=== PATIENT | male | born 1965 | race Caucasian/White ===

== ENCOUNTER 2021-07-09 14:05 | Inpatient (IN) | payer SELFPAY ==
[2021-07-09 15:00] LABS: ANION GAP 16.4 mEq/L (7-13); CHLORIDE,CL 92 mmol/L (98-107); SODIUM,NA 132 mmol/L (136-145)
[2021-07-09] MEDS ORDERED: Iopamidol 755 Mg/ML 100 ML Bottle IVPUSH ONE (15:15)
--- NOTE | 2021-07-09 15:25 | EDM.PDOC ---
ED HPI GENERAL MEDICAL PROBLEM - General Chief Complaint: Respiratory Problem Stated Complaint: BLOOD PRESSURE LOW Time Seen by Provider: 07/09/21 15:00 Source of Information: Reports: Patient, Provider History Limitations: Reports: No Limitations - History of Present Illness INITIAL COMMENTS - FREE TEXT/NARRATIVE: This 56 yo male patient was sent to the ED by a provider at the [facility] due to a positive COVID test last week (home test on 07/01/21), a blood pressure of 68/34 and an oxygen saturation of 78% on room air. The patient was brought to the ED from the clinic in a wheel chair, without oxygen, but the patient did have a surgical mask in place. Unfortunately, when he arrived in the ED there were no beds available so the patient was held in the [place]ivar until a room could be cleaned for him. Oxygen therapy was initiated by RT prior to being placed in a ED bed. Onset: Gradual Duration: Constant, Getting Worse Location: Reports: Chest, Generalized Quality: Reports: Other Severity: Severe Improves with: Reports: Rest Worsens with: Reports: Movement Associated Symptoms: Reports: Cough, Fever/Chills, Shortness of Breath, Weakness, Other (lower extremity edema) - Related Data Allergies Allergy/AdvReac Type Severity Reaction Status Date / Time No Known Allergies Allergy Verified 07/09/21 16:03 ED ROS GENERAL - Review of Systems Review Of Systems: Comprehensive ROS is negative, except as noted in HPI. ED EXAM, GENERAL - Physical Exam Exam: See Below Exam Limited By: No Limitations General Appearance: Alert, WD/WN Eye Exam: Bilateral Eye: EOMI, Normal Inspection, PERRL Ears: Normal External Exam, Normal Canal, Hearing Grossly Normal, Normal TMs Nose: Normal Inspection, Normal Mucosa, No Blood Throat/Mouth: Normal Inspection, Normal Lips, Normal Teeth, Normal Gums, Normal Oropharynx, Normal Voice, No Airway Compromise Head: Atraumatic, Normocephalic Neck: Normal Inspection, Supple, Non-Tender, Full Range of Motion Respiratory/Chest: Decreased Breath Sounds, Rhonchi Cardiovascular: Normal Peripheral Pulses, Regular Rate, Rhythm, No Edema, No Gallop, No JVD, No Murmur, No Rub GI/Abdominal: Normal Bowel Sounds, Soft, Non-Tender, No Organomegaly, No Distention, No Abnormal Bruit, No Mass (Male) Exam: Deferred Rectal (Males) Exam: Deferred Back Exam: Normal Inspection, Full Range of Motion, NT Extremities: Normal Inspection, Normal Range of Motion, Non-Tender, Normal Capillary Refill, No Pedal Edema Neurological: Alert, Oriented, CN II-XII Intact, Normal Cognition, Normal Gait, Normal Reflexes, No Motor/Sensory Deficits Psychiatric: Normal Affect, Normal Mood Skin Exam: Warm, Dry, Intact, Normal Color, No Rash Lymphatic: No Adenopathy Course - Vital Signs Last Recorded V/S: Last Vital Signs Temp 99.0 F 07/09/21 15:37 Pulse 108 H 07/09/21 15:37 Resp 24 H 07/09/21 15:37 BP Pulse Ox 82 L 07/09/21 15:37 - Orders/Labs/Meds Orders: Active Orders 24 hr Category Date Time Status Admission Diagnosis [ADT] Urgent ADT 07/09/21 16:15 Ordered Admission Status [Patient Status] [ADT] Routine ADT 07/09/21 16:15 Ordered EKG Documentation Completion [RC] STAT Care 07/09/21 14:11 Active Chest w Cont [CT] Urgent Exams 07/09/21 15:15 Ordered REFLEX LACTIC ACID YES OR NO [CHEM] Routine Lab 07/09/21 15:04 Received Labs: Laboratory Tests 07/09/21 07/09/21 07/09/21 Range/Units 14:30 14:30 14:30 WBC 16.4 H (5.0-10.0) 10^3/uL RBC 6.08 (4.6-6.2) 10^6/uL Hgb 15.7 (14.0-18.0) g/dL Hct 46.9 (40.0-54.0) % MCV 77.1 L (80-100) fL MCH 25.8 L (27.0-34.0) pg MCHC 33.5 (33.0-35.0) g/dL Plt Count 244 (150-450) 10^3/uL Neut % (Auto) 91.6 H (42.2-75.2) % Lymph % (Auto) 5.6 L (20.5-50.1) % [place] % (Auto) 2.6 (2-8) % Eos % (Auto) 0.1 L (1.0-3.0) % Baso % (Auto) 0.1 (0.0-1.0) % Add Manual Diff Yes Neutrophils % (Manual) 95 H (42-75) % Lymphocytes % (Manual) 3 L (20-50) % Monocytes % (Manual) 2 (2-8) % D-Dimer, Quantitative 3060 H (0-400) ng/mL Sodium 132 L (136-145) mmol/L Potassium 3.4 L (3.5-5.1) mmol/L Chloride 92 L (98-107) mmol/L Carbon Dioxide 27 (21-32) mmol/L Anion Gap 16.4 H (7-13) mEq/L BUN 24 H (7-18) mg/dL Creatinine 1.07 (0.70-1.30) mg/dL Est Cr Clr Drug Dosing TNP Estimated GFR (MDRD) > 60 BUN/Creatinine Ratio 22.4 (No establ ref range) Glucose 87 (70-99) mg/dL Lactic Acid (0.4-2.0) mmol/L Calcium 8.4 L (8.5-10.1) mg/dL Total Bilirubin 3.1 H (0.2-1.0) mg/dL AST 153 H (15-37) U/L ALT 87 H (16-63) U/L Alkaline Phosphatase 114 (46-116) U/L Troponin I High Sens 58 (<=76) pg/mL B-Natriuretic Peptide (0-100) pg/ml Total Protein 6.5 (6.4-8.2) g/dL Albumin 2.8 L (3.4-5.0) g/dL Globulin 3.7 Albumin/Globulin Ratio 0.76 Influenza Type A RNA (NEGATIVE) Influenza Type B RNA (NEGATIVE) SARS-CoV-2 RNA (HOMERO) (NEGATIVE) 07/09/21 07/09/21 07/09/21 Range/Units 14:30 14:30 15:00 WBC (5.0-10.0) 10^3/uL RBC (4.6-6.2) 10^6/uL Hgb (14.0-18.0) g/dL Hct (40.0-54.0) % MCV (80-100) fL MCH (27.0-34.0) pg MCHC (33.0-35.0) g/dL Plt Count (150-450) 10^3/uL Neut % (Auto) (42.2-75.2) % Lymph % (Auto) (20.5-50.1) % [place] % (Auto) (2-8) % Eos % (Auto) (1.0-3.0) % Baso % (Auto) (0.0-1.0) % Add Manual Diff Neutrophils % (Manual) (42-75) % Lymphocytes % (Manual) (20-50) % Monocytes % (Manual) (2-8) % D-Dimer, Quantitative (0-400) ng/mL Sodium (136-145) mmol/L Potassium (3.5-5.1) mmol/L Chloride (98-107) mmol/L Carbon Dioxide (21-32) mmol/L Anion Gap (7-13) mEq/L BUN (7-18) mg/dL Creatinine (0.70-1.30) mg/dL Est Cr Clr Drug Dosing Estimated GFR (MDRD) BUN/Creatinine Ratio (No establ ref range) Glucose (70-99) mg/dL Lactic Acid 3.0 H* (0.4-2.0) mmol/L Calcium (8.5-10.1) mg/dL Total Bilirubin (0.2-1.0) mg/dL AST (15-37) U/L ALT (16-63) U/L Alkaline Phosphatase (46-116) U/L Troponin I High Sens (<=76) pg/mL B-Natriuretic Peptide 446 H (0-100) pg/ml Total Protein (6.4-8.2) g/dL Albumin (3.4-5.0) g/dL Globulin Albumin/Globulin Ratio Influenza Type A RNA Negative (NEGATIVE) Influenza Type B RNA Negative (NEGATIVE) SARS-CoV-2 RNA (HOMERO) Positive H (NEGATIVE) Meds: Medications Discontinued Medications Generic Name Dose Route Start Last Admin Trade Name Freq PRN Reason Stop Dose Admin Iopamidol 100 ml 07/09/21 15:15 Iopamidol 755 Mg/Ml 100 Ml Bottle IVPUSH 07/09/21 15:16 ONETIME ONE Departure - Departure Time of Disposition: 16:17 Disposition: Admitted As Inpatient 66 Condition: Serious Clinical Impression: COVID, Hypoxemia - Discharge Information *PRESCRIPTION DRUG MONITORING PROGRAM REVIEWED*: Not Applicable *COPY OF PRESCRIPTION DRUG MONITORING REPORT IN PATIENT ESDRAS: Not Applicable Forms: ED Department Discharge Care Plan Goals: Discussed the patient's history, examination and lab results with Dr. Li. Dr. Li accepted the patient for continued evaluation and management as an inpatient in [facility]. Sepsis Event Note (ED) - Focused Exam Vital Signs: Vital Signs Temp Pulse Resp Pulse Ox 07/09/21 15:37 99.0 F 108 H 24 H 82 L - My Orders Last 24 Hours: My Active Orders 07/09/21 14:11 EKG Documentation Completion [RC] STAT 07/09/21 15:04 REFLEX LACTIC ACID YES OR NO [CHEM] Routine 07/09/21 15:15 Chest w Cont [CT] Urgent 07/09/21 16:15 Admission Diagnosis [ADT] Urgent Admission Status [Patient Status] [ADT] Routine - Assessment/Plan Last 24 Hours: My Active Orders 07/09/21 14:11 EKG Documentation Completion [RC] STAT 07/09/21 15:04 REFLEX LACTIC ACID YES OR NO [CHEM] Routine 07/09/21 15:15 Chest w Cont [CT] Urgent 07/09/21 16:15 Admission Diagnosis [ADT] Urgent Admission Status [Patient Status] [ADT] Routine
[2021-07-09 15:57] LABS: CORONAVIRUS COVID-19 NAA POSITIVE (NEGATIVE)
--- NOTE | 2021-07-09 17:10 | PCM.HP ---
H&P History of Present Illness - General Date of Service: 07/09/21 Admit Problem/Dx: Admission Diagnosis/Problem Admission Diagnosis/Problem Hypoxemia Source of Information: Patient History Limitations: Reports: No Limitations - History of Present Illness Initial Comments - Free Text/Narative: Evan Romo a 56 y.o.male. Presented to the regular family practice clinic of [facility] at [place], Pt presented their for COVID-19 testing and examination, Patient tested positive for COVID-19 on by the home test kit and got retested today ( 07/09/21) and it is also positive for COVID-19. The patient is unvaccinated and he has not taken any treatment even after testing positive with his home testing kit, today ( 07/09) he presented to the family practice clinic because of symptoms of shortness of breath and bilateral lower extremity swelling and weakness. His blood pressure in the clinic was low ( 68/34) and oxygen saturation was 78% on room air and was sent to ER at [place] for further evaluation. The patient will be admitted for severe hypoxemia secondary to COVID-19 infection and secondary bacterial pneumonia. Laboratory examination showed D- dimer was at 3060 and lactic acid was at 3. CT chest with contrast was ordered but patient could not lay flat and because of the severe hypoxia the CT was not done. Onset of Symptoms: Reports: Gradual Duration of Symptoms: Reports: Getting Worse Associated Symptoms: Reports: cough w sputum - Related Data Allergies/Adverse Reactions: Allergies Allergy/AdvReac Type Severity Reaction Status Date / Time No Known Allergies Allergy Verified 07/09/21 16:03 Past Medical History - Past Health History Medical/Surgical History: Denies Medical/Surgical History - Infectious Disease History Infectious Disease History: Reports: Novel Coronavirus Social & Family History - Family History Family Medical History: Unobtainable - Tobacco Use Tobacco Use Status *Q: Former Tobacco User Used Tobacco, but Quit: Yes Month/Year Tobacco Last Used: 07/2005 - Caffeine Use Caffeine Use: Reports: None - Recreational Drug Use Recreational Drug Use: No H&P Review of Systems - Review of Systems: Review Of Systems: See Below General: Reports: Weakness. Denies: Fever, Chills HEENT: Denies: Dysphasia, Headaches, Hearing Changes, Sinus Congestion, Visual Changes Pulmonary: Reports: Shortness of Breath, Cough Cardiovascular: Reports: Dyspnea on Exertion. Denies: Chest Pain, Lightheadedness Gastrointestinal: Denies: Abdominal Pain, Diarrhea, Nausea, Vomiting Genitourinary: Denies: Dysuria, Frequency, Urgency, Flank Pain Musculoskeletal: Denies: Neck Pain, Shoulder Pain Skin: Denies: Cyanosis, Jaundice, Bruising, Pruritis, Rash Psychiatric: Denies: Confusion, Anxiety Neurological: Denies: Confusion, Numbness, Paresthesia Exam - Exam Exam: See Below - Vital Signs Vital Signs: Last Vital Signs Temp 37.2 C 07/09/21 15:37 Pulse 108 H 07/09/21 15:37 Resp 24 H 07/09/21 15:37 BP Pulse Ox 82 L 07/09/21 15:37 - Exam Quality Assessment: Supplemental Oxygen, DVT Prophylaxis. No: Urinary Catheter General: Alert, Oriented, Cooperative, Mild Distress HEENT: Conjunctiva Clear, Hearing Intact, Mucosa Moist & [place] Neck: Supple. No: JVD, Thyromegaly Lungs: Clear to Auscultation, Normal Respiratory Effort Cardiovascular: Regular Rate, Regular Rhythm GI/Abdominal Exam: Normal Bowel Sounds, Non-Tender, No Distention (Male) Exam: Deferred Rectal (Males) Exam: Deferred Back Exam: Normal Inspection Extremities: Normal Inspection, Pedal Edema (+2-3 pitting edema to B/L Lower Extremitu with skin break of Left LE) Skin: Warm, Dry, Intact Neurological: Cranial Nerves Intact, Reflexes Equal Bilateral Neuro Extensive - Mental Status: Alert, Oriented x3, Normal Mood/Affect, Normal Cognition Neuro Extensive - Motor, Sensory, Reflexes: CN II-XII Intact, Normal Gait, Normal Reflexes Psychiatric: Alert, Normal Affect, Normal Mood - Patient Data Lab Results Last 24 hrs: Laboratory Results - last 24 hr 07/09/21 07/09/21 07/09/21 Range/Units 14:30 14:30 14:30 WBC 16.4 H (5.0-10.0) 10^3/uL RBC 6.08 (4.6-6.2) 10^6/uL Hgb 15.7 (14.0-18.0) g/dL Hct 46.9 (40.0-54.0) % MCV 77.1 L (80-100) fL MCH 25.8 L (27.0-34.0) pg MCHC 33.5 (33.0-35.0) g/dL Plt Count 244 (150-450) 10^3/uL Neut % (Auto) 91.6 H (42.2-75.2) % Lymph % (Auto) 5.6 L (20.5-50.1) % [place] % (Auto) 2.6 (2-8) % Eos % (Auto) 0.1 L (1.0-3.0) % Baso % (Auto) 0.1 (0.0-1.0) % Add Manual Diff Yes Neutrophils % (Manual) 95 H (42-75) % Lymphocytes % (Manual) 3 L (20-50) % Monocytes % (Manual) 2 (2-8) % D-Dimer, Quantitative 3060 H (0-400) ng/mL Sodium 132 L (136-145) mmol/L Potassium 3.4 L (3.5-5.1) mmol/L Chloride 92 L (98-107) mmol/L Carbon Dioxide 27 (21-32) mmol/L Anion Gap 16.4 H (7-13) mEq/L BUN 24 H (7-18) mg/dL Creatinine 1.07 (0.70-1.30) mg/dL Est Cr Clr Drug Dosing TNP Estimated GFR (MDRD) > 60 BUN/Creatinine Ratio 22.4 (No establ ref range) Glucose 87 (70-99) mg/dL Lactic Acid (0.4-2.0) mmol/L Calcium 8.4 L (8.5-10.1) mg/dL Total Bilirubin 3.1 H (0.2-1.0) mg/dL AST 153 H (15-37) U/L ALT 87 H (16-63) U/L Alkaline Phosphatase 114 (46-116) U/L Troponin I High Sens 58 (<=76) pg/mL B-Natriuretic Peptide (0-100) pg/ml Total Protein 6.5 (6.4-8.2) g/dL Albumin 2.8 L (3.4-5.0) g/dL Globulin 3.7 Albumin/Globulin Ratio 0.76 Influenza Type A RNA (NEGATIVE) Influenza Type B RNA (NEGATIVE) SARS-CoV-2 RNA (HOMERO) (NEGATIVE) 07/09/21 07/09/21 07/09/21 Range/Units 14:30 14:30 15:00 WBC (5.0-10.0) 10^3/uL RBC (4.6-6.2) 10^6/uL Hgb (14.0-18.0) g/dL Hct (40.0-54.0) % MCV (80-100) fL MCH (27.0-34.0) pg MCHC (33.0-35.0) g/dL Plt Count (150-450) 10^3/uL Neut % (Auto) (42.2-75.2) % Lymph % (Auto) (20.5-50.1) % [place] % (Auto) (2-8) % Eos % (Auto) (1.0-3.0) % Baso % (Auto) (0.0-1.0) % Add Manual Diff Neutrophils % (Manual) (42-75) % Lymphocytes % (Manual) (20-50) % Monocytes % (Manual) (2-8) % D-Dimer, Quantitative (0-400) ng/mL Sodium (136-145) mmol/L Potassium (3.5-5.1) mmol/L Chloride (98-107) mmol/L Carbon Dioxide (21-32) mmol/L Anion Gap (7-13) mEq/L BUN (7-18) mg/dL Creatinine (0.70-1.30) mg/dL Est Cr Clr Drug Dosing Estimated GFR (MDRD) BUN/Creatinine Ratio (No establ ref range) Glucose (70-99) mg/dL Lactic Acid 3.0 H* (0.4-2.0) mmol/L Calcium (8.5-10.1) mg/dL Total Bilirubin (0.2-1.0) mg/dL AST (15-37) U/L ALT (16-63) U/L Alkaline Phosphatase (46-116) U/L Troponin I High Sens (<=76) pg/mL B-Natriuretic Peptide 446 H (0-100) pg/ml Total Protein (6.4-8.2) g/dL Albumin (3.4-5.0) g/dL Globulin Albumin/Globulin Ratio Influenza Type A RNA Negative (NEGATIVE) Influenza Type B RNA Negative (NEGATIVE) SARS-CoV-2 RNA (HOMERO) Positive H (NEGATIVE) Result Diagrams: 07/09/21 14:30 07/09/21 14:30 - Problem List (1) Edema of lower extremity SNOMED Code(s): 502770498 ICD Code: R60.0 - LOCALIZED EDEMA Status: Acute Current Visit: Yes (2) COVID SNOMED Code(s): 529147023 ICD Code: U07.1 - COVID-19 Status: Acute Current Visit: No (3) Hypoxemia SNOMED Code(s): 855175588 ICD Code: R09.02 - HYPOXEMIA Status: Acute Current Visit: No Problem List Initiated/Reviewed/Updated: Yes Orders Last 24hrs: Active Orders 24 hr Category Date Time Status Admission Diagnosis [ADT] Urgent ADT 07/09/21 16:15 Ordered Admission Status [Patient Status] [ADT] Routine ADT 07/09/21 16:15 Active EKG Documentation Completion [RC] STAT Care 07/09/21 14:11 Active REFLEX LACTIC ACID YES OR NO [CHEM] Routine Lab 07/09/21 15:04 Received Assessment/Plan Comment:: Mr. Junior is a 56-year-old male moderately obese getting admitted for Covid associated pneumonia and significant hypoxia. Impression and plan: 1. Covid 19 infection with secondary pneumonia: The patient had tested positive for Covid pneumonia at home on 07/01/2021 but he stayed home and did not get any treatment, he is unvaccinated, today he went to the clinic and also his breathing status is progressively worsening, he tested again today for COVID-19 and it was positive. I have discussed with the patient about the treatment plan for COVID-19, and wi ll start him with remdesivir loading dose of 200 mg IV x1 today and then followed by 100 mg IV daily for another 5 days. I have discussed with patient that remdesivir is a newly approved medication for treatment of Covid by FDA, and he agreed to receive the treatment. We will also start him on dexamethasone 6 mg IV daily. We will also start him on azithromycin 500 mg IV daily, ceftriaxone 1 g IV daily, and and Zosyn 3.375 mg IV every 6 hours. We will also start him on Lasix 60 mg IV 3 times a day. Continue I and O recording for every shift. We will check CMP, PT, PTT, fibrinogen, and D-dimer daily. Wanted to get CT of the chest with contrast but it was not possible because the patient cannot lay flat because of severe hypoxia. Next line We will get a chest x-ray and review it. 2. Severe lower extremity edema: Patient has +2-3 pitting edema to bilateral lower extremity and will start him on Lasix at 60 mg IV 3 times a day. We will check daily weight, and also have strict I and O recording for every shift. 3. Acute hypoxia: Patient has significant hypoxic respiratory failure and this is secondary to COVID-19 pneumonia is on now oxygen therapy at 6 L by Ventimask and saturating around 90%, discussed with the patient if the respiratory status deteriorates and if we have to intubate he wants to intubate him. Next 4. DVT prophylaxis/VTE: We will start him on Enoxaparin ( levonex ) 40 mg subQ 2 times a day 5. Elevated D-dimer: Patient has elevated D-dimer but could not get the CT of chest with contrast because of the inability of the patient to lay flat, will repeat D-dimer again tomorrow and see if with diuresis ,if he gets better then will get a CT of chest with contrast. 6. GI prophylaxis: We will start him on Protonix 40 mg p.o. daily with breakfast. 7. CODE STATUS. Discussed with patient about CODE STATUS and he wants to be in full code.
[2021-07-09] MEDS ORDERED: Azithromycin 500 MG in Sodium Chloride 0.9% 250 ML IV SCH ×2 (18:00→20:00)
[2021-07-09] MEDS ORDERED: cefTRIAXone 1 GM Vial IM SCH (18:00)
[2021-07-09] MEDS ORDERED: REMDESIVIR 200 MG in Sodium Chloride 0.9% 250 ML IV ONE (18:08)
[2021-07-09] MEDS ORDERED: Acetaminophen 325 MG Tab PO PRN (18:13)
[2021-07-09] MEDS ORDERED: Docusate Sodium 100 MG Cap PO PRN (18:13)
[2021-07-09] MEDS ORDERED: Furosemide 40 MG/4 ML VIAL IVPUSH SCH (19:00)
[2021-07-09] MEDS ORDERED: Dexamethasone 4 MG/ML SDV IVPUSH SCH (19:00)
[2021-07-09] MEDS ORDERED: Furosemide 100 MG/10 ML SDV IVPUSH ONE (20:27)
[2021-07-09] MEDS ORDERED: Diltiazem 125 MG in Sodium Chloride 0.9% 100 ML IV SCH (20:30)
[2021-07-09] MEDS ORDERED: cefTRIAXone 1 GM in Sodium Chloride 0.9% 50 ML IV SCH (21:00)
[2021-07-09] MEDS: Enoxaparin 40 MG/0.4 ML Syringe SUBCUT SCH (21:03)
--- NOTE | 2021-07-09 22:20 | CR ---
PROCEDURE INFORMATION: Exam: XR Chest Exam date and time: 07/09/2021 8:04 PM Age: 56 years old Clinical indication: Other: Shortness of breath TECHNIQUE: Imaging protocol: XR of the chest. Views: 1 view. COMPARISON: No relevant prior studies available. FINDINGS: Tubes, catheters and devices: Cardiac lead wires are present. Lungs: Moderate parenchymal opacification is seen at the right base. More extensive parenchymal opacification is present in the left mid and lower lung fieldsThere likely is pulmonary vascular redistribution. Consider failure as well as possible pneumonia. Pleural spaces: There likely is a small left pleural effusion. Heart/Mediastinum: . Due to rotation and extensive parenchymal opacification at the left lung base, the heart is difficult to to evaluate. Bones/joints: Unremarkable. IMPRESSION: Bilateral opacifications, more pronounced on the left. Consider failure and/or pneumonia.
[2021-07-09] MEDS: Furosemide 100 MG in Sodium Chloride 0.9% 90 ML IV SCH (22:25)
[2021-07-09] MEDS: Piperacillin/Tazobactam 3.375 GM in Sodium Chloride 0.9% 100 ML IV SCH (23:21)
[2021-07-10] MEDS: Piperacillin/Tazobactam 3.375 GM in Sodium Chloride 0.9% 100 ML IV SCH ×3 (00:02→12:29)
[2021-07-10] MEDS ORDERED: Water For Injection, Sterile 40 ML ONE (00:33)
[2021-07-10] MEDS ORDERED: REMDESIVIR 200 MG in Sodium Chloride 0.9% 250 ML IV ONE (01:00)
[2021-07-10] MEDS: Furosemide 100 MG in Sodium Chloride 0.9% 90 ML IV SCH ×3 (03:06→13:39)
[2021-07-10 07:43] LABS: ANION GAP 13.2 mEq/L (7-13)
[2021-07-10] MEDS: Enoxaparin 40 MG/0.4 ML Syringe SUBCUT SCH (08:30)
[2021-07-10 08:32] LABS: PTT,PARTIAL THROMBOPLSTIN TIME 36.8 SEC (22.0-34.0)
--- NOTE | 2021-07-10 08:43 | CR ---
PROCEDURE INFORMATION: Exam: XR Chest Exam date and time: 07/10/2021 8:21 AM Age: 56 years old Clinical indication: Hypoxia on bipap TECHNIQUE: Imaging protocol: XR of the chest. Views: 1 view. COMPARISON: CR Chest 1V Frontal 07/09/2021 8:04 PM FINDINGS: Lungs: There is bilateral, asymmetric airspace disease more prominently on the left. Air bronchogram formation present in the left perihilar region. The findings could be due to bilateral pneumonia or asymmetric pulmonary edema. The findings are not significantly changed allowing for technical and positional differences. Pleural spaces: No large pleural effusion. No pneumothorax. Heart/Mediastinum: The cardiac silhouette is not felt to be enlarged. There is widening of the mediastinum, perhaps due to mediastinal lipomatosis given the patient's body habitus. Bones/joints: Multilevel disc degeneration with bridging osteophytes in the thoracic spine. IMPRESSION: No significant change in bilateral, asymmetric pneumonia versus pulmonary edema.
[2021-07-10] MEDS ORDERED: REMDESIVIR 100 MG in Sodium Chloride 0.9% 100 ML IV SCH (09:00)
[2021-07-10] MEDS ORDERED: Potassium Chloride 10 MEQ Tab.ER PO SCH (09:00)
[2021-07-10 12:13] VITALS: PULSE 112
--- NOTE | 2021-07-10 12:33 | PCM.DCSUM1 ---
Discharge Summary - Hospital Course Free Text/Narrative:: Evan Romo a 56 y.o.male. Presented to the regular family practice clinic of [facility] at [place], Pt presented their for COVID-19 testing and examination, Patient tested positive for COVID-19 on by the home test kit and got retested today ( 07/09/21) and it is also positive for COVID-19. The patient is unvaccinated and he has not taken any treatment even after testing positive with his home testing kit, today ( 07/09) he presented to the family practice clinic because of symptoms of shortness of breath and bilateral lower extremity swelling and weakness. His blood pressure in the clinic was low ( 68/34) and oxygen saturation was 78% on room air and was sent to ER at [place] for further evaluation. The patient will be admitted for severe hypoxemia secondary to COVID-19 infection and secondary bacterial pneumonia. Laboratory examination showed D- dimer was at 3060 and lactic acid was at 3. CT chest with contrast was ordered but patient could not lay flat and because of severe hypoxia the CT was not done. CXR was done after admission and showed B/L opacification more pronounced on the left. Over the night the patient's respiratory status deteriorated and rapid response was called, his heart rate was in 140-160 range, started him on Cardizem drip and also Lasix drip. He was placed on BiPAP with 100% oxygen and with Lasix drip he showed some response and his status improved a little bit. Today we discussed with the patient about his transfer to [facility] for higher level of care. I discussed the case with Dr. Herrera and he agreed to accept the patient and he will be transferred today to [facility].. After the admission I discussed with him about treatment with remdesivir and its adverse effects also informed that it is FDA approved and he agreed to take the remdesivir, he has received first dose of 200 mg IV 06/2029 and also the second dose of 100 mg today 07/10/2021. He is also started on dexamethasone 6 mg IV daily, his blood culture and urine cultures are done so far no growth, he is on antibiotics Zosyn, Ceftriaxone and azithromycin. Diagnosis: Stroke: No - Discharge Data Discharge Date: 07/10/21 Discharge Disposition: DC/Tfer to Acute Hospital 02 Condition: Good - Referral to Home Health Primary Care Physician: PCP None - Discharge Diagnosis/Problem(s) (1) Edema of lower extremity SNOMED Code(s): 816710098 ICD Code: R60.0 - LOCALIZED EDEMA Status: Acute Current Visit: Yes (2) COVID SNOMED Code(s): 525102908 ICD Code: U07.1 - COVID-19 Status: Acute Current Visit: No (3) Hypoxemia SNOMED Code(s): 587578797 ICD Code: R09.02 - HYPOXEMIA Status: Acute Current Visit: No - Patient Instructions Diet: Heart Healthy Diet Activity: As Tolerated Showering/Bathing: May Shower Notify Provider of: Fever, Nausea and/or Vomiting - Discharge Plan *PRESCRIPTION DRUG MONITORING PROGRAM REVIEWED*: Not Applicable *COPY OF PRESCRIPTION DRUG MONITORING REPORT IN PATIENT ESDRAS: Not Applicable Home Medications: Home Meds . [No Known Home Meds] 07/10/21 [History] Oxygen Therapy Mode: BiPAP Forms: ED Department Discharge - Discharge Summary/Plan Comment DC Time >30 min.: Yes Total # of Minutes for Discharge Time: Total time spend in transferring and discharging this pt: >30 minutes Discharge Summary/Plan Comment: Assessment/Plan Comment:: Mr. Junior is a 56-year-old male ,moderately obese getting admitted for Covid associated pneumonia and significant hypoxia. I reviewed the chart and he had no previous visit with any provider, I talk to him and he denied history of Diabetes or Hypertension, Impression and plan: 1. Covid 19 infection with secondary pneumonia: The patient had tested positive for Covid pneumonia at home on 07/01/2021 but he stayed home and did not get any treatment, he is unvaccinated, today ( 07/09) he went to [facility] because of his breathing status was progressively worsening, he tested again today( 07/09) for COVID-19 and it was positive. I have discussed with the patient about the treatment plan for COVID-19, and he has received remdesivir loading dose of 200 mg IV x1 on 07/09 - followed by 100 mg IV daily for another 4 days. I have discussed with patient that remdesivir is a newly approved medication for treatment of Covid by FDA, and he agreed to receive the treatment. - will also continue him on dexamethasone 6 mg IV daily. - will also continue him on azithromycin 500 mg IV daily, ceftriaxone 1 g IV daily, and and Zosyn 3.375 mg IV every 6 hours. - will continue him on Lasix drip at 20 mg/hr -Continue I and O recording for every shift. -will check CMP, PT, PTT, fibrinogen, and D-dimer daily. - Wanted to get CT of the chest with contrast but it was not possible because the patient cannot lay flat because of severe hypoxia. - he had chest x-ray and showed bilateral opacities, left more than right. 2. Severe lower extremity edema: Patient has +2-3 pitting edema to bilateral lower extremity and will continue him on Lasix at 20 mg /hr. - will check daily weight, and also have strict I and O recording for every shift. 3. Acute hypoxia: Patient has significant hypoxic respiratory failure and this is secondary to COVID-19 pneumonia is on now BIPAP -He will be transferred to [facility] 4. DVT prophylaxis/VTE: We will continue him on Enoxaparin ( levonex ) 40 mg subQ 2 times a day 5. Elevated D-dimer: Patient has elevated D-dimer but could not get the CT of chest with contrast because of the inability of the patient to lay flat, -will repeat D-dimer daily if gets worse then will have to start high intensity Heparin drip 6. GI prophylaxis: We will start him on Protonix 40 mg p.o. daily with breakfast. 7. Afib with RVR: Rapid response was called last night and his heart rate was 1 40-160 and started him on Cardizem drip and the rate is now better controlled. 7. CODE STATUS. Discussed with patient about CODE STATUS and he wants to be in full code. This note is dictated via Rowl dictation system. - Patient Data Vitals - Most Recent: Last Vital Signs Temp 36.0 C L 07/10/21 12:00 Pulse 112 H 07/10/21 12:00 Resp 20 07/10/21 12:00 BP 143/99 H 07/10/21 12:00 Pulse Ox 97 07/10/21 12:00 Weight - Most Recent: 140.16 kg I&O - Last 24 hours: Intake & Output 07/09/21 07/10/21 07/10/21 22:59 06:59 14:59 Intake Total 50 96 Output Total 600 2600 Balance -600 -2550 96 Lab Results - Last 24 hrs: Laboratory Results - last 24 hr 07/09/21 07/09/21 07/09/21 Range/Units 14:30 14:30 14:30 WBC 16.4 H (5.0-10.0) 10^3/uL RBC 6.08 (4.6-6.2) 10^6/uL Hgb 15.7 (14.0-18.0) g/dL Hct 46.9 (40.0-54.0) % MCV 77.1 L (80-100) fL MCH 25.8 L (27.0-34.0) pg MCHC 33.5 (33.0-35.0) g/dL Plt Count 244 (150-450) 10^3/uL Neut % (Auto) 91.6 H (42.2-75.2) % Lymph % (Auto) 5.6 L (20.5-50.1) % [place] % (Auto) 2.6 (2-8) % Eos % (Auto) 0.1 L (1.0-3.0) % Baso % (Auto) 0.1 (0.0-1.0) % Add Manual Diff Yes Neutrophils % (Manual) 95 H (42-75) % Band Neutrophils % % Lymphocytes % (Manual) 3 L (20-50) % Monocytes % (Manual) 2 (2-8) % APTT (22.0-34.0) SEC Fibrinogen (200-400) mg/dL D-Dimer, Quantitative 3060 H (0-400) ng/mL Sodium 132 L (136-145) mmol/L Potassium 3.4 L (3.5-5.1) mmol/L Chloride 92 L (98-107) mmol/L Carbon Dioxide 27 (21-32) mmol/L Anion Gap 16.4 H (7-13) mEq/L BUN 24 H (7-18) mg/dL Creatinine 1.07 (0.70-1.30) mg/dL Est Cr Clr Drug Dosing TNP Estimated GFR (MDRD) > 60 BUN/Creatinine Ratio 22.4 (No establ ref range) Glucose 87 (70-99) mg/dL Lactic Acid (0.4-2.0) mmol/L Calcium 8.4 L (8.5-10.1) mg/dL Total Bilirubin 3.1 H (0.2-1.0) mg/dL Direct Bilirubin (0.0-0.2) mg/dL AST 153 H (15-37) U/L ALT 87 H (16-63) U/L Alkaline Phosphatase 114 (46-116) U/L Troponin I High Sens 58 (<=76) pg/mL B-Natriuretic Peptide (0-100) pg/ml Total Protein 6.5 (6.4-8.2) g/dL Albumin 2.8 L (3.4-5.0) g/dL Globulin 3.7 Albumin/Globulin Ratio 0.76 Influenza Type A RNA (NEGATIVE) Influenza Type B RNA (NEGATIVE) SARS-CoV-2 RNA (HOMERO) (NEGATIVE) 07/09/21 07/09/21 07/09/21 Range/Units 14:30 14:30 15:00 WBC (5.0-10.0) 10^3/uL RBC (4.6-6.2) 10^6/uL Hgb (14.0-18.0) g/dL Hct (40.0-54.0) % MCV (80-100) fL MCH (27.0-34.0) pg MCHC (33.0-35.0) g/dL Plt Count (150-450) 10^3/uL Neut % (Auto) (42.2-75.2) % Lymph % (Auto) (20.5-50.1) % [place] % (Auto) (2-8) % Eos % (Auto) (1.0-3.0) % Baso % (Auto) (0.0-1.0) % Add Manual Diff Neutrophils % (Manual) (42-75) % Band Neutrophils % % Lymphocytes % (Manual) (20-50) % Monocytes % (Manual) (2-8) % APTT (22.0-34.0) SEC Fibrinogen (200-400) mg/dL D-Dimer, Quantitative (0-400) ng/mL Sodium (136-145) mmol/L Potassium (3.5-5.1) mmol/L Chloride (98-107) mmol/L Carbon Dioxide (21-32) mmol/L Anion Gap (7-13) mEq/L BUN (7-18) mg/dL Creatinine (0.70-1.30) mg/dL Est Cr Clr Drug Dosing Estimated GFR (MDRD) BUN/Creatinine Ratio (No establ ref range) Glucose (70-99) mg/dL Lactic Acid 3.0 H* (0.4-2.0) mmol/L Calcium (8.5-10.1) mg/dL Total Bilirubin (0.2-1.0) mg/dL Direct Bilirubin (0.0-0.2) mg/dL AST (15-37) U/L ALT (16-63) U/L Alkaline Phosphatase (46-116) U/L Troponin I High Sens (<=76) pg/mL B-Natriuretic Peptide 446 H (0-100) pg/ml Total Protein (6.4-8.2) g/dL Albumin (3.4-5.0) g/dL Globulin Albumin/Globulin Ratio Influenza Type A RNA Negative (NEGATIVE) Influenza Type B RNA Negative (NEGATIVE) SARS-CoV-2 RNA (HOMERO) Positive H (NEGATIVE) 07/10/21 07/10/21 07/10/21 Range/Units 07:10 07:10 07:10 WBC 21.6 H (5.0-10.0) 10^3/uL RBC 5.92 (4.6-6.2) 10^6/uL Hgb 15.3 (14.0-18.0) g/dL Hct 47.4 (40.0-54.0) % MCV 80.1 D (80-100) fL MCH 25.8 L (27.0-34.0) pg MCHC 32.3 L (33.0-35.0) g/dL Plt Count 207 (150-450) 10^3/uL Neut % (Auto) 92.6 H (42.2-75.2) % Lymph % (Auto) 5.2 L (20.5-50.1) % [place] % (Auto) 2.2 (2-8) % Eos % (Auto) 0.0 L (1.0-3.0) % Baso % (Auto) 0.0 (0.0-1.0) % Add Manual Diff Yes Neutrophils % (Manual) 74 (42-75) % Band Neutrophils % 24 % Lymphocytes % (Manual) 1 L (20-50) % Monocytes % (Manual) 1 L (2-8) % APTT (22.0-34.0) SEC Fibrinogen (200-400) mg/dL D-Dimer, Quantitative (0-400) ng/mL Sodium 137 (136-145) mmol/L Potassium 3.2 L (3.5-5.1) mmol/L Chloride 96 L (98-107) mmol/L Carbon Dioxide 31 (21-32) mmol/L Anion Gap 13.2 H (7-13) mEq/L BUN 27 H (7-18) mg/dL Creatinine 1.28 (0.70-1.30) mg/dL Est Cr Clr Drug Dosing 68.63 Estimated GFR (MDRD) 58 BUN/Creatinine Ratio 21.1 (No establ ref range) Glucose 87 (70-99) mg/dL Lactic Acid 2.18 H* (0.4-2.0) mmol/L Calcium 7.9 L (8.5-10.1) mg/dL Total Bilirubin 2.8 H (0.2-1.0) mg/dL Direct Bilirubin 2.2 H (0.0-0.2) mg/dL AST 114 H (15-37) U/L ALT 68 H (16-63) U/L Alkaline Phosphatase 99 (46-116) U/L Troponin I High Sens (<=76) pg/mL B-Natriuretic Peptide (0-100) pg/ml Total Protein 5.9 L (6.4-8.2) g/dL Albumin 2.4 L (3.4-5.0) g/dL Globulin 3.5 Albumin/Globulin Ratio 0.69 Influenza Type A RNA (NEGATIVE) Influenza Type B RNA (NEGATIVE) SARS-CoV-2 RNA ([facility]OMERO) (NEGATIVE) 07/10/21 Range/Units 07:10 WBC (5.0-10.0) 10^3/uL RBC (4.6-6.2) 10^6/uL Hgb (14.0-18.0) g/dL Hct (40.0-54.0) % MCV (80-100) fL MCH (27.0-34.0) pg MCHC (33.0-35.0) g/dL Plt Count (150-450) 10^3/uL Neut % (Auto) (42.2-75.2) % Lymph % (Auto) (20.5-50.1) % [place] % (Auto) (2-8) % Eos % (Auto) (1.0-3.0) % Baso % (Auto) (0.0-1.0) % Add Manual Diff Neutrophils % (Manual) (42-75) % Band Neutrophils % % Lymphocytes % (Manual) (20-50) % Monocytes % (Manual) (2-8) % APTT 36.8 H (22.0-34.0) SEC Fibrinogen 367 (200-400) mg/dL D-Dimer, Quantitative 3080 H (0-400) ng/mL Sodium (136-145) mmol/L Potassium (3.5-5.1) mmol/L Chloride (98-107) mmol/L Carbon Dioxide (21-32) mmol/L Anion Gap (7-13) mEq/L BUN (7-18) mg/dL Creatinine (0.70-1.30) mg/dL Est Cr Clr Drug Dosing Estimated GFR (MDRD) BUN/Creatinine Ratio (No establ ref range) Glucose (70-99) mg/dL Lactic Acid (0.4-2.0) mmol/L Calcium (8.5-10.1) mg/dL Total Bilirubin (0.2-1.0) mg/dL Direct Bilirubin (0.0-0.2) mg/dL AST (15-37) U/L ALT (16-63) U/L Alkaline Phosphatase (46-116) U/L Troponin I High Sens (<=76) pg/mL B-Natriuretic Peptide (0-100) pg/ml Total Protein (6.4-8.2) g/dL Albumin (3.4-5.0) g/dL Globulin Albumin/Globulin Ratio Influenza Type A RNA (NEGATIVE) Influenza Type B RNA (NEGATIVE) SARS-CoV-2 RNA ([facility]OMERO) (NEGATIVE) Med Orders - Current: Current Medications Acetaminophen (Acetaminophen 325 Mg Tab) 650 mg PO Q4H PRN PRN Reason: Pain (mild 1-3 )/fever Dexamethasone (Dexamethasone 4 Mg/Ml Sdv) 6 mg IVPUSH DAILY@1800 K[facility] Last Admin: 07/09/21 19:59 Dose: 6 mg Documented by: Docusate Sodium (Docusate Sodium 100 Mg Cap) 100 mg PO DAILY PRN PRN Reason: Constipation Enoxaparin Sodium (Enoxaparin 40 Mg/0.4 Ml Syringe) 40 mg SUBCUT BID [facility] Last Admin: 07/10/21 08:30 Dose: 40 mg Documented by: Piperacillin Sod/Tazobactam (Sod 3.375 gm/ Sodium Chloride) 100 mls @ 200 mls/hr IV Q6H [facility] Last Admin: 07/10/21 12:29 Dose: 200 mls/hr Documented by: Azithromycin 500 mg/ Sodium (Chloride) 250 mls @ 250 mls/hr IV Q24H [facility] Last Admin: 07/09/21 21:25 Dose: 250 mls/hr Documented by: Diltiazem HCl 125 mg/ Sodium (Chloride) 125 mls @ 5 mls/hr IV TITRATE [facility]; Protocol Last Admin: 07/09/21 20:50 Dose: 5 mg/hr, 5 mls/hr Documented by: Ceftriaxone Sodium 1 gm/ (Sodium Chloride) 50 mls @ 100 mls/hr IV Q24H [facility] Last Admin: 07/09/21 23:12 Dose: 100 mls/hr Documented by: Furosemide 100 mg/ Sodium (Chloride) 100 mls @ 20 mls/hr IV ASDIRECTED [facility] Last Admin: 07/10/21 08:28 Dose: 20 mg/hr, 20 mls/hr Documented by: Remdesivir 100 mg/ Sodium (Chloride) 100 mls @ 100 mls/hr IV Q24H [facility] Stop: 07/13/21 09:59 Last Infusion: 07/10/21 12:24 Dose: Infused Documented by: Potassium Chloride (Potassium Chloride 10 Meq Tab.Er) 20 meq PO TID [facility] Last Admin: 07/10/21 10:27 Dose: 20 meq Documented by: Discontinued Medications Ceftriaxone Sodium (Ceftriaxone 1 Gm Vial) 1 gm IM Q24H [facility] Last Admin: 07/10/21 01:22 Dose: Not Given Documented by: Furosemide (Furosemide 40 Mg/4 Ml Vial) 60 mg IVPUSH TID [facility] Last Admin: 07/09/21 20:01 Dose: 60 mg Documented by: Furosemide (Furosemide 100 Mg/10 Ml Sdv) 120 mg IVPUSH ONETIME ONE Stop: 07/09/21 20:28 Last Admin: 07/09/21 20:57 Dose: 120 mg Documented by: Remdesivir 200 mg/ Sodium (Chloride) 250 mls @ 250 mls/hr IV ONETIME ONE Stop: 07/09/21 19:07 Last Admin: 07/10/21 01:22 Dose: Not Given Documented by: Remdesivir 200 mg/ Sodium (Chloride) 250 mls @ 250 mls/hr IV ONETIME ONE Stop: 07/10/21 01:59 Last Admin: 07/10/21 00:48 Dose: 250 mls/hr Documented by: Sterile Water (Sterile Water For Injection) Confirm Administered Dose 40 mls @ as directed .ROUTE .STK-MED ONE Stop: 07/10/21 00:34 Last Admin: 07/10/21 01:21 Dose: 1 mls/hr Documented by: Iopamidol (Iopamidol 755 Mg/Ml 100 Ml Bottle) 100 ml IVPUSH ONETIME ONE Stop: 07/09/21 15:16
[2021-07-11 01:28] VITALS: BP 157/109
== END 2021-07-10 13:50 | DRG 177 ==
LOC: DL.ED 14:05 → DL.MS 16:15
PROVIDERS: ADMIT Internal Medicine Nephrology; ATTEND Internal Medicine Nephrology
PROC: 8E0ZXY6 Isolation (ICD-10-PCS; principal; 2021-07-09)
PROC: 3E0333Z Introduction of Anti-inflammatory into Peripheral Vein, Percutaneous Approach (ICD-10-PCS; 2021-07-09)
DX: U07.1 COVID-19 (principal); J12.82 Pneumonia due to coronavirus disease 2019; J96.01 Acute respiratory failure with hypoxia; R60.0 Localized edema; I48.91 Unspecified atrial fibrillation; Z79.01 Long term (current) use of anticoagulants
CPT/HCPCS: 0240U; 36415; 51702; 71045; 80053; 82248; 83605; 83880; 84484; 85025; 85379; 85384; 85730; 94660; 99285-25; A9270-GY; J0456; J0696; J1100; J1650; J1940; J2543; J3490; J7050